=== PATIENT | female | born 1990 | race Caucasian/White ===

== ENCOUNTER → 2024-04-07 10:53 | Outpatient (REF) | payer OTHER, SELFPAY | LOC: HWRAD 10:53 | PROVIDERS: ATTENDING PHYSICIAN Nurse Practitioner Family | DX: R05.9 Cough, unspecified (principal) | CPT/HCPCS: 71046 ==

== ENCOUNTER 2025-02-10 10:31 | Emergency (ER) | payer OTHER, SELFPAY ==
[2025-02-10 10:37] VITALS: BP 124/83
--- NOTE | 2025-02-10 11:44 | ED.GENMED ---
History of Present Illness
General
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
Time Seen by Provider: 02/10/25 11:39
History of Present Illness
History of Present Illness:
34-year-old female presents to the emergency department patient with pelvic pain that has been ongoing for the past 3 to 4 days, waxing and waning with episodes of severe sharp discomfort. Pain is not radiating, no associated fever, chills, sweats.
Did have several episodes of vomiting this morning in association with her pain. Does have a Mirena IUD this does not have frequent periods. Brownish discharge last night that resolved this morning. No dysuria or hematuria. Prior abdominal
surgical history includes x 2
Past History
Past History
ED Past Medical History: Other (IBS, Miscarrage); Negative Asthma, HTN, Hypercholesterolemia or NIDDM
ED Past Surgical History:
Social History
Tobacco: Non-smoker
Alcohol: None
Personal:
Living: with family
Review of Systems
Review of Systems
Allergies reviewed?: Yes
All Other Systems: ROS reviewed and negative except as documented in HPI and ROS
Phy Exam
Physical Exam
Physical Exam:
GEN: Well appearing, NAD, WDWN
HEENT: Oral mucosa moist, no scleral icterus
Cardiac: Regular rate
Lung: No respiratory distress, no tachypnea
Abdomen: Soft, focal left lower quadrant/left pelvic tenderness, no palpable masses
MSK: No gross deformity or injuries
Skin: Good color, no pallor or jaundice, no rashes
Neuro: AO x3, moves all extremities freely
Psych: Calm, cooperative
Sepsis
Sepsis Screening
Sepsis Assessment: Sepsis Ruled Out
Sepsis Screen
Sepsis Screen: Sepsis Ruled Out
Date: 02/10/25
Time: 18:07
Course
Orders/Labs/Results
Orders:
Orders
02/10/25 11:44
Test Result ONCE
US Pelvis W Transvag Combined Urgent
Comment:
Reason For Exam: L pelvic pain
02/10/25 11:48
Basic Metabolic Panel Urgent
Complete Blood Count/No Diff Urgent
HCG, Serum Qualitative Screen Urgent
02/10/25 13:35
Urinalysis Reflex To Culture Urgent
Date Specimen was Collected: 02/10/25
Time Specimen was Collected: 12:37
Urine Microscopic Reflex Cult Urgent
Urine Culture Urgent
SHARRI Source: U
Specimen Description:
Date Specimen was Collected: 02/10/25
Time Specimen was Collected: 12:37
Abnormal Lab Results
02/10/25 02/10/25
11:48 13:35
RBC 4.16 L 10^6/uL
(4.20-5.40)
MCH 35.6 H pg
(27.0-31.0)
MCHC 37.1 H g/dL
(33.0-37.0)
Ur Occult Blood Reflex 3+ A
(Negative)
Urine RBC 3-6 A /HPF
(0-2)
Urine Bacteria (Reflex) Moderate A
(Negative)
Urine Albumin (Reflex) 1+ A
(Neg - Trace)
02/10/25 11:48
02/10/25 11:48
Vital Signs
Initial and Last Documented VS:
Initial Vital Signs
Temp Pulse Resp BP Pulse Ox
98.2 F 82 16 124/83 98
02/10/25 10:37 02/10/25 10:37 02/10/25 10:37 02/10/25 10:37 02/10/25 10:37
Last Documented Vital Signs
Temp Pulse Resp BP Pulse Ox
98.2 F 82 16 124/83 98
02/10/25 10:37 02/10/25 10:37 02/10/25 10:37 02/10/25 10:37 02/10/25 11:47
MDM/Problems Addressed
MDM/Problems Addressed:
Imaging shows an isolated ovarian cyst with scant free fluid in the pelvis, no overt hemorrhage identified. Patient is clinically stable, discussed supportive care, labs otherwise unremarkable.
*Pulse Oximetry
SaO2: 98
Oxygen Mode of Delivery: Room air
Patient hypoxic: no
*Critical Care Note
Total Time (30-74mins, 75-104mins- exclusive of procedures): Not Applicable
ED Attending Note
-
Portions of this chart may have been created with voice recognition software.� Occasional wrong word or��sound alike� substitutions may have occurred due to the inherent limitations of voice recognition software.
Discharge Plan
Departure
Patient Disposition: Home (Routine Discharge)
Date of Disposition: 02/10/25
Time of Disposition: 13:45
Patient with high blood pressure during this ER visit?: No
Discharge Problem:
Cyst of left ovary
Instructions: Ovarian cyst - ED (DC)
Prescriptions:
No Action
No Current Medications
hydrocodone-acetaminophen 1 TABLET tablet
1 - 2 tab PO Q4HPRN PRN (Reason: moderate to severe pain) Qty: 20 0RF
ondansetron 4 MG tablet,disintegrating
4 mg PO Q6HPRN PRN (Reason: nausea) Qty: 6 0RF
Interventions
Interventions:
*Risk Screen - Suicide Last Done: 02/10/25 10:37
*General Assessment Last Done: 02/10/25 11:53
*Neglect/Abuse Screening Last Done: 02/10/25 10:37
*ED COVID-19 Vaccine History Last Done: 02/10/25 11:53
*ED Influenza Vaccine History Last Done: 02/10/25 11:53
[facility] Risk Assessment Tool Last Done: 02/10/25 10:31
*Nursing Disposition Last Done: 02/10/25 13:55
ED-Female Genitourinary Assessment Last Done: 02/10/25 11:53
Discharge Date and Time
Discharge Date/Time: 02/10/25 13:57
Print Language: MALAY
[2025-02-10 12:02] LABS: Hematocrit 39.9 % (37.0-47.0); Hemoglobin 14.8 g/dL (12.0-16.0); Mean Corp Hgb Conc. 37.1 g/dL (33.0-37.0); Mean Corpuscular Volume 95.9 fL (81.0-99.0); Platelet Count 227 10^3/uL (130-400); Red Cell Dist. Width 11.6 % (11.5-14.5)
[2025-02-10 12:03] VITALS: BMI 24.5
[2025-02-10 12:27] LABS: HCG, Serum Qualitative Screen Negative
[2025-02-10 12:34] LABS: Blood Urea Nitrogen 9 mg/dl (7-17); Calcium 9.8 mg/dl (8.4-10.2); Carbon Dioxide 25 mmol/L (22-30); Chloride 105 mmol/L (98-107); Estimated Creatinine Clearance -13 ml/min; Glucose 83 mg/dl (70-99); Potassium 3.7 mmol/L (3.5-5.1); Sodium 135 mmol/L (135-145); eGFR > 60.00
[2025-02-10 14:21] LABS: Urine Character Clear (Clear)
[2025-02-10 15:07] LABS: Urine Squamous Cell 16-20 /LPF (Few)
== END 2025-02-10 13:57 | disposition home or self-care (01) ==
LOC: EMR 10:31
PROVIDERS: Physician Assistant; EMERGENCY PHYSICIAN Emergency Medicine; FAMILY PHYSICIAN Obstetrics & Gynecology
DX: N83.202 Unspecified ovarian cyst, left side (principal); Z97.5 Presence of (intrauterine) contraceptive device
CPT/HCPCS: 99284; 76830; 76856; 80048; 81003; 81015; 84703; 85027; 87086